=== PATIENT | female | born 1980 | race Caucasian/White ===

== ENCOUNTER 2019-03-08 13:52 | Emergency (ER) | payer OTHER ==
[2019-03-08] MEDS: IPRATROPIUM (NEB) 0.5 MG/2.5 ML AMP NEB (14:12)
[2019-03-08] MEDS: ALBUTEROL 0.083% (NEB) 2.5 MG/3 ML AMP NEB (14:12)
[2019-03-08] MEDS: DEXAMETHASONE 10 MG/ML 1 ML INJ IM (14:13)
== END 2019-03-08 15:53 | disposition home or self-care (01) ==
LOC: FTE 13:52
DX: J45.901 Unspecified asthma with (acute) exacerbation (principal)
CPT/HCPCS: 71046; 94664; 96372; 99284-25